=== PATIENT | male | born 1985 | race Caucasian/White ===

== ENCOUNTER 2018-09-02 15:23 | Emergency (ER) | payer OTHER ==
[~2018-09-02] VITALS: Ht 195.6 cm; Wt 78.5 kg
[2018-09-02 15:30] VITALS: BP 117/77
--- NOTE | 2018-09-02 15:36 | NUR ---
DR BETANCOURT AT BEDSIDE
== END 2018-09-02 15:43 | disposition home or self-care (01) ==
LOC: ER 15:26
DX: J06.9 Acute upper respiratory infection, unspecified (principal); R59.1 Generalized enlarged lymph nodes; Z60.2 Problems related to living alone
CPT/HCPCS: Z7502